=== PATIENT | female | born 1970 | race African-American/Black ===

== ENCOUNTER 2019-07-18 17:56 | Emergency (ER) | payer SELFPAY ==
[~2019-07-18] VITALS: Ht 170.2 cm; Wt 72.7 kg
[2019-07-18] MEDS ORDERED: [UNRECOGNIZED DRUG - REMARK] PO (18:15)
[2019-07-18 18:39] LABS: BASOPHILS % (AUTO) 1.1 % (0.0-2.0); EOSINOPHILS % (AUTO) 1.8 % (1.0-6.0); HEMATOCRIT 30.5 % (36-46); HEMOGLOBIN 10.1 g/dL (12.0-16.0); LYMPHOCYTES # (AUTO) 2.3 K/uL (1.0-4.8); LYMPHOCYTES % (AUTO) 26.3 % (22.0-44.0); MEAN CORPUSCULAR HEMOGLOBIN 25.8 pg (26.0-34.0); MEAN CORPUSCULAR HGB CONC 33.2 G/dL (31.0-37.0); MEAN CORPUSCULAR VOLUME 78 fL (80-100); MONOCYTES # (AUTO) 0.6 K/uL (0.1-1.0); MONOCYTES % (AUTO) 6.5 % (2.0-9.0); NEUTROPHILS # (AUTO) 5.6 K/uL (1.8-7.7); NEUTROPHILS % (AUTO) 64.3 % (40.0-70.0); PLATELET COUNT (AUTO) 391 K/uL (150-450); RED BLOOD CELL COUNT(AUTO) 3.93 MIL/uL (4.00-5.20); RED CELL DISTRIBUTION WIDTH 24.1 % (11.5-14.5)
[2019-07-18] MEDS ORDERED: ESTROGENS,CONJUGATED 25 MG/VIAL IM ONE (19:30)
[2019-07-18 23:05] VITALS: BP 133/74
== END 2019-07-18 23:11 | disposition home or self-care (01) ==
LOC: EMS 18:00
DX: N93.8 Other specified abnormal uterine and vaginal bleeding (principal); D25.9 Leiomyoma of uterus, unspecified; D64.9 Anemia, unspecified; R03.0 Elevated blood-pressure reading, without diagnosis of hypertension
CPT/HCPCS: 36415; 76856; 84702; 85025; 96372; 99284; J1410